=== PATIENT | female | born 1950 | race Caucasian/White ===

== ENCOUNTER 2020-12-12 10:47 | Outpatient (REF) | payer MEDICARE, SELFPAY ==
--- NOTE | 2020-12-12 10:55 | MM_ITS ---
EXAMINATION: MM DIAGNOSTIC DIGITAL BREAST TOMOSYNTHESIS, BILATERAL CLINICAL INFORMATION: Probable benign calcifications mid 9:00 right breast. Due for yearly. The lifetime risk of breast cancer based on the Tyrer-Cuzick Model is 6%. COMPARISON: Mammography: 12/08/2019, 06/05/2019, 12/03/2018, 11/28/2018 (BI-RADS 0), 11/27/2017. TECHNIQUE: Digital breast tomosynthesis is performed in both the craniocaudal and mediolateral oblique views along with computer-aided detection (CAD). Synthesized 2D images are generated from the tomosynthesis. Additional magnification views of the right breast are obtained in the CC and ML views. FINDINGS: The breasts are almost entirely fatty (ACR BI-RADS breast composition Category a). There are no significant masses, abnormal calcifications, or other abnormalities. The right breast calcifications for follow up are similar to prior diagnostic exams and now considered benign. There are some benign round calcifications anterior and posteromedial left breast again noted. Results are provided to the patient at time of visit by the technologist. MM/MM tomosynthesis diagnostic BI IMPRESSION: There are no significant changes from prior studies. The right breast calcifications for follow up are now considered benign. ASSESSMENT: BI-RADS 2: Benign RECOMMENDATION: Routine annual mammography screening. This patient's information was entered into a reminder system with a target due date for their next mammogram.
== END 2020-12-12 10:48 | disposition home or self-care (01) ==
LOC: HO.MAMMO 10:47
PROVIDERS: PCP Family Medicine; Visit Provider Family Medicine
DX: R92.1 Mammographic calcification found on diagnostic imaging of breast (principal)
CPT/HCPCS: 77062; 77066

== ENCOUNTER 2021-01-16 10:43 | Outpatient (REF) | payer MEDICARE, SELFPAY ==
[2021-01-16 14:56] LABS: Alanine Aminotransferase 16 U/L (0-31); Estimated Glomerular Filt Rate 56
== END 2021-01-16 10:44 | disposition home or self-care (01) ==
LOC: HO.HMGCLDS 10:43
PROVIDERS: PCP Family Medicine; Visit Provider Family Medicine
DX: E03.9 Hypothyroidism, unspecified (principal); E78.00 Pure hypercholesterolemia, unspecified; Z79.899 Other long term (current) drug therapy
CPT/HCPCS: 36415; 82550; 82565; 84439; 84443; 84460

== ENCOUNTER 2021-06-28 14:01 | Outpatient (REF) | payer MEDICARE, SELFPAY ==
--- NOTE | ~2021-06-28 | XR_ITS ---
EXAMINATION: XR HAND, RIGHT CLINICAL INFORMATION: Pain and swelling. COMPARISON: Radiographs right hand 08/27/2012. TECHNIQUE: The right hand is imaged in 3 views. FINDINGS: There is no fracture or dislocation or destructive process. Mild dorsal bowing of the distal ulnar is again seen. The ulnar variance is neutral. There are osteoarthritic changes involving the 1st carpometacarpal joint with joint narrowing and subchondral sclerosis and spurring. This has progressed since prior imaging 2011. The MCP and interphalangeal joints show no focal joint narrowing and no erosive changes. XR/XR hand RT min 3V IMPRESSION: Osteoarthritis 1st carpometacarpal joint, increased since prior imaging 2011.
[2021-06-28 16:53] LABS: Free T4 (Free Thyroxine) 1.16 ng/dL (0.71-1.85); Thyroid Stimulating Hormone 1.86 uIU/mL (0.32-4.0)
== END 2021-06-28 14:02 | disposition home or self-care (01) ==
LOC: HO.HMGCLDS 14:01
PROVIDERS: PCP Family Medicine; Visit Provider Family Medicine
DX: M79.641 Pain in right hand (principal); M79.89 Other specified soft tissue disorders; E03.9 Hypothyroidism, unspecified
CPT/HCPCS: 36415; 73130; 84439; 84443

== ENCOUNTER → 2021-09-06 13:51 | Outpatient (BNVA) | payer MEDICARE, SELFPAY | PROVIDERS: Visit Provider Orthopaedic Surgery | DX: M65.311 Trigger thumb, right thumb (principal); M65.341 Trigger finger, right ring finger | CPT/HCPCS: 99202 ==

== ENCOUNTER 2021-09-21 12:04 | Day surgery (SDC) | payer MEDICARE, SELFPAY ==
[2021-09-21 12:44] VITALS: BP 140/71; PULSE 69; RESP 18; TEMP 36.6; O2SAT 95; BMI 28.9
--- NOTE | 2021-09-21 15:50 | MHC.SHP ---
Pre-Procedural Eval Section A Date of Service: 09/21/21 The patient is an INPATIENT: No Changes since office visit: No Cold of Flu in the past 2 weeks, No New Medical Problems, No Changes in Medication and No Patient answered all questions The History & Physical has been completed within 30 days and I have reviewed it.: Yes Section B Chief Complaint: trigger thumb and ring finger Allergies: Allergies Allergy/AdvReac Type Severity Reaction Status Date / Time Yeast [YEAST] Allergy Unknown THRUSH Verified 09/06/21 14:33 Plan I have reviewed the history and physical and performed a pertinent physical examination on my patient. No changes have occurred unless specified.
--- NOTE | 2021-09-21 15:51 | W.PM.OPN ---
Operative Note Operative Note Date of Service: 09/21/21 Narrative: Operative Note Preop diagnosis: 1. Right ring finger Trigger finger 2. Right trigger thumb Postop diagnosis: Same Procedure: 1. Right ring finger A1 jitendra release 2. Right thumb A1 jitendra release Surgeon: Anna Faith MD Anesthesia: local block using 1% lidocaine with epinephrine Findings: No locking or catching after A1 jitendra release EBL: Less than 5 mL Tourniquet time: None Specimens: None Complications: None Disposition: Brought to recovery room in stable condition Plan: Follow-up for 7-10 days for wound check and suture removal Indications: The patient is a 70 years old, with a right trigger thumb and right ring finger trigger finger that have been unresponsive to nonoperative management. The risks and benefits of operative treatment including but not limited to risk of damage to blood vessels, nerves, tendons, infection, persistent pain, persistent symptoms, recurrence or possible need for additional surgery were discussed with the patient and the patient wishes to proceed with surgery. Procedure: Once consent was obtained a local block was performed in the preop area using a combination of 1% lidocaine with epinephrine. The patient was then brought back to the operating suite and placed on the operative table in supine position. A tourniquet was applied to the proximal aspect of the right upper extremity and the limb was prepped and draped in a standard surgical fashion. Once assured that we had a good block, a 1.5 cm oblique incision was made centered over the A1 jitendra of the right ring finger . The incision was made through the skin to the subcutaneous tissues using a #15 blade. Careful dissection was made down to the level of the A1 jitendra using tenotomy scissors, with care being taken to protect the nearby neurovascular structures. A longitudinal incision was made in the A1 jitendra 1st using a #15 blade, then using tenotomy scissors under direct visualization. The A1 jitendra was noted to be thickened. Following our A1 jitendra release, we no longer saw any locking or catching of the digit with flexion and extension. Once assured that we had a good block, a 1.5 cm oblique incision was made centered over the A1 jitendra of the right thumb . The incision was made through the skin to the subcutaneous tissues using a #15 blade. Careful dissection was made down to the level of the A1 jitendra using tenotomy scissors, with care being taken to protect the nearby neurovascular structures. A longitudinal incision was made in the A1 jitendra 1st using a #15 blade, then using tenotomy scissors under direct visualization. The A1 jitendra was noted to be thickened. Following our A1 jitendra release, we no longer saw any locking or catching of the digit with flexion and extension. Once satisfied with our A1 jitendra release the wound was copiously irrigated with normal saline and hemostasis was obtained with a brief period of local pressure. The skin edges were reapproximated with some 5.0 nylon suture material and a sterile dressing was applied. The patient appears to have tolerated the procedure well and with no complications. All digits were well vascularized at the conclusion of the case.
[2021-09-21 16:25] VITALS: BP 113/67; PULSE 63; RESP 16; TEMP 36.1; O2SAT 95
== END 2021-09-21 16:48 | disposition home or self-care (01) ==
PROVIDERS: PCP Family Medicine; Visit Provider Orthopaedic Surgery
PROC: (CPT 26055; principal; 2021-09-21 14:50)
DX: M65.341 Trigger finger, right ring finger (principal); M65.311 Trigger thumb, right thumb; F32.9 Major depressive disorder, single episode, unspecified; E78.00 Pure hypercholesterolemia, unspecified; M79.2 Neuralgia and neuritis, unspecified; Z79.899 Other long term (current) drug therapy
CPT/HCPCS: 26055 ×2

== ENCOUNTER → 2021-10-03 15:25 | Outpatient (BNVA) | payer MEDICARE, SELFPAY | PROVIDERS: PCP Family Medicine; Visit Provider Orthopaedic Surgery | DX: M65.311 Trigger thumb, right thumb (principal); M65.341 Trigger finger, right ring finger | CPT/HCPCS: 99212 ==

== ENCOUNTER 2021-12-26 10:33 | Outpatient (REF) | payer MEDICARE, SELFPAY ==
--- NOTE | ~2021-12-26 | MM_ITS ---
EXAMINATION: MM SCREENING DIGITAL BREAST TOMOSYNTHESIS, BILATERAL CLINICAL INFORMATION: Screening. Asymptomatic. The lifetime risk of breast cancer based on the Tyrer-Cuzick Model is 3%. COMPARISON: Mammography: 12/12/2020, 12/08/2019, 06/05/2019, 12/03/2018, 11/28/2018 TECHNIQUE: Digital breast tomosynthesis is performed in both the craniocaudal and mediolateral oblique views along with computer-aided detection (CAD). Synthesized 2D images are generated from the tomosynthesis. FINDINGS: The breasts are almost entirely fatty (ACR BI-RADS breast composition Category a). There are no significant masses, abnormal calcifications, or other abnormalities. Parenchymal pattern is similar to prior studies. There is no developing density or architectural abnormality. There are benign grouped coarse calcifications again seen mid 9:00 right breast. The axilla and skin contours are unremarkable. No significant changes. MM/MM tomosynthesis screening BI IMPRESSION: No mammographic evidence of malignancy. ASSESSMENT: BI-RADS 2: Benign RECOMMENDATION: Routine annual mammography screening. This patient's information was entered into a reminder system with a target due date for their next mammogram.
== END 2021-12-26 10:34 | disposition home or self-care (01) ==
LOC: HO.MAMMO 10:33
PROVIDERS: PCP Family Medicine; Visit Provider Family Medicine
DX: Z12.31 Encounter for screening mammogram for malignant neoplasm of breast (principal)
CPT/HCPCS: 77063; 77067

== ENCOUNTER 2022-01-03 12:38 | Outpatient (REF) | payer MEDICARE, SELFPAY ==
[2022-01-03 14:41] LABS: Free T4 (Free Thyroxine) 1.14 ng/dL (0.71-1.85); Thyroid Stimulating Hormone 3.47 uIU/mL (0.32-4.0)
== END 2022-01-03 12:39 | disposition home or self-care (01) ==
LOC: HO.LAB 12:38
PROVIDERS: PCP Family Medicine; Visit Provider Family Medicine
DX: E03.9 Hypothyroidism, unspecified (principal)
CPT/HCPCS: 36415; 84439; 84443

== ENCOUNTER 2022-03-07 12:44 | Outpatient (REF) | payer MEDICARE, SELFPAY ==
[2022-03-07 13:44] LABS: MANUAL DIFF FLAG NO
[2022-03-07 13:49] LABS: Basophils Absolute Auto 0.1 X10*3/uL (0.0-0.2); Basophils Percent Auto 1.1 % (0-2); Eosinophils Absolute Auto 0.1 X10*3/uL (0.0-0.4); Eosinophils Percent Auto 1.7 % (0-4); Hematocrit 39.8 % (37.0-47.0); Hemoglobin 13.4 g/dl (12.0-16.0); Imm Gran Abs Auto 0.01 X10*3/uL (0.00-0.03); Imm Gran Pct Auto 0.2 % (0.0-0.4); Lymphocytes Absolute Auto 1.3 X10*3/uL (1.2-4.9); Lymphocytes Percent Auto 24.8 % (20-40); Mean Corpuscular HGB Conc 33.7 g/dl (31.0-35.0); Mean Corpuscular Hemoglobin 31.6 pg (27.0-33.0); Mean Corpuscular Volume 93.9 fL (80.0-98.0); Monocytes Absolute Auto 0.6 X10*3/uL (0.1-1.2); Monocytes Percent Auto 11.6 % (2-11); Neutrophils Absolute Auto 3.3 x10*3/uL (2.0-8.3); Neutrophils Percent Auto 60.6 % (45-73); Platelet Count 298 X10*3/uL (160-400); Red Blood Count 4.24 X10*6/uL (4.20-5.50); Red Cell Distribution Width 12.3 % (11.0-16.0); White Blood Count 5.4 X10*3/uL (4.8-10.8)
[2022-03-07 14:13] LABS: Alanine Aminotransferase 15 U/L (0-31); Albumin Level 4.2 g/dL (3.5-5.0); Alkaline Phosphatase 64 U/L (39-117); Anion Gap 12 (12-20); Aspartate Amino Transferase 19 U/L (5-31); Bilirubin Total 0.8 mg/dL (0.0-1.0); Blood Urea Nitrogen 12 mg/dL (9-16); Calcium 9.8 mg/dL (8.4-10.2); Carbon Dioxide 26 mmol/L (22-29); Chloride 99 mmol/L (96-108); Estimated Glomerular Filt Rate 54; Glucose Random 102 mg/dL (60-115); Potassium 4.5 mmol/L (3.3-5.1); Sodium 132 mmol/L (135-145); Total Protein 6.9 g/dL (6.5-8.0)
[2022-03-07 14:53] LABS: Erythrocyte Sedimentation Rate 5 MM/HR (0-20)
[2022-03-08 15:31] LABS: Anti Nuclear Antibody Screen NEGATIVE (NEGATIVE)
== END 2022-03-07 12:45 | disposition home or self-care (01) ==
LOC: HO.HMGCLDS 12:44
PROVIDERS: PCP Family Medicine; Visit Provider Family Medicine
DX: L50.9 Urticaria, unspecified (principal)
CPT/HCPCS: 36415; 80053; 85025; 85652; 86038; 86039

== ENCOUNTER 2022-07-02 15:09 | Outpatient (REF) | payer MEDICARE, SELFPAY ==
--- NOTE | ~2022-07-02 | US_ITS ---
EXAMINATION: US PELVIS CLINICAL INFORMATION: Right lower quadrant pain. Rule out ovarian cyst. COMPARISON: None TECHNIQUE: Ultrasound of the pelvis is performed using both transabdominal and transvaginal transducers along with Doppler. Transvaginal imaging is performed due to inadequate visualization transabdominally. FINDINGS: The uterus is retroverted and measures 8.8 x 2.4 x 4.8 cm in dimension. No focal uterine lesion is seen. Endometrial thickness is normal measuring 0.3 cm. The right ovary is normal-appearing and measures 2.5 x 1 x 1.9 cm. The left ovary is enlarged and measures 7.2 x 4.2 x 6.2 cm. There is a 6.3 x 4.6 x 6.2 cm simple left ovarian cyst. There is no fluid in the pelvis. US/US pelvic and transvaginal IMPRESSION: 6.3 x 4.6 x 6.2 cm left ovarian cyst.
[2022-07-02 17:32] LABS: Anion Gap 16 (12-20); Carbon Dioxide 25 mmol/L (22-29); Chloride 95 mmol/L (96-108); Potassium 3.8 mmol/L (3.3-5.1); Sodium 132 mmol/L (135-145)
[2022-07-02 17:59] LABS: Free T4 (Free Thyroxine) 1.18 ng/dL (0.71-1.85); Thyroid Stimulating Hormone 2.48 uIU/mL (0.32-4.0)
== END 2022-07-02 15:10 | disposition home or self-care (01) ==
LOC: HO.HMGCX 15:09
PROVIDERS: PCP Family Medicine; Visit Provider Family Medicine
DX: R10.30 Lower abdominal pain, unspecified (principal); E03.9 Hypothyroidism, unspecified; E87.1 Hypo-osmolality and hyponatremia
CPT/HCPCS: 36415; 76830; 76856; 80051; 84439; 84443

== ENCOUNTER 2022-07-11 10:46 | Outpatient (REF) | payer MEDICARE, SELFPAY ==
[2022-07-11 13:54] LABS: MANUAL DIFF FLAG NO
[2022-07-11 14:02] LABS: Basophils Absolute Auto 0.1 X10*3/uL (0.0-0.2); Basophils Percent Auto 1.1 % (0-2); Eosinophils Absolute Auto 0.1 X10*3/uL (0.0-0.4); Eosinophils Percent Auto 2.8 % (0-4); Hematocrit 40.1 % (37.0-47.0); Hemoglobin 13.5 g/dl (12.0-16.0); Lymphocytes Absolute Auto 0.9 X10*3/uL (1.2-4.9); Lymphocytes Percent Auto 19.6 % (20-40); Mean Corpuscular HGB Conc 33.7 g/dl (31.0-35.0); Mean Corpuscular Hemoglobin 31.8 pg (27.0-33.0); Mean Corpuscular Volume 94.6 fL (80.0-98.0); Mean Platelet Volume 10.6 fL (9.4-12.3); Monocytes Absolute Auto 0.5 X10*3/uL (0.1-1.2); Monocytes Percent Auto 11.5 % (2-11); Neutrophils Absolute Auto 3.1 x10*3/uL (2.0-8.3); Platelet Count 262 X10*3/uL (160-400); Red Blood Count 4.24 X10*6/uL (4.20-5.50); Red Cell Distribution Width 12.5 % (11.0-16.0); White Blood Count 4.7 X10*3/uL (4.8-10.8)
[2022-07-11 14:59] LABS: Erythrocyte Sedimentation Rate 4 MM/HR (0-20)
[2022-07-13 10:27] LABS: CA-125 7 U/mL (<35)
== END 2022-07-11 10:47 | disposition home or self-care (01) ==
LOC: HO.HMGCLDS 10:46
PROVIDERS: PCP Family Medicine; Visit Provider Family Medicine
DX: R10.9 Unspecified abdominal pain (principal); N83.202 Unspecified ovarian cyst, left side
CPT/HCPCS: 36415; 85025; 85652; 86304

== ENCOUNTER 2022-12-28 10:24 | Outpatient (REF) | payer MEDICARE, SELFPAY ==
--- NOTE | ~2022-12-28 | MM_ITS ---
EXAMINATION: MM SCREENING DIGITAL BREAST TOMOSYNTHESIS, BILATERAL CLINICAL INFORMATION: Screening. Asymptomatic. The lifetime risk of breast cancer based on the Tyrer-Cuzick Model is 3.6%. COMPARISON: Mammography: December 26, 2021 and studies dating back to October 26, 2016 TECHNIQUE: Digital breast tomosynthesis is performed in both the craniocaudal and mediolateral oblique views along with computer-aided detection (CAD). Synthesized 2D images are generated from the tomosynthesis. FINDINGS: The breasts are almost entirely fatty (ACR BI-RADS breast composition Category a). There are no significant masses, abnormal calcifications, or other abnormalities. MM/MM tomosynthesis screening BI IMPRESSION: No significant changes ASSESSMENT: BI-RADS 1: Negative RECOMMENDATION: Routine annual mammography screening. This patient's information was entered into a reminder system with a target due date for their next mammogram.
== END 2022-12-28 10:25 | disposition home or self-care (01) ==
LOC: HO.MAMMO 10:24
PROVIDERS: PCP Family Medicine; Visit Provider Obstetrics & Gynecology
DX: Z12.31 Encounter for screening mammogram for malignant neoplasm of breast (principal)
CPT/HCPCS: 77063; 77067

== ENCOUNTER 2023-02-22 13:03 | Outpatient (REF) | payer MEDICARE, SELFPAY ==
[2023-02-22 14:35] LABS: Alanine Aminotransferase 12 U/L (0-31); Aspartate Amino Transferase 19 U/L (5-31)
[2023-02-22 14:52] LABS: Free T4 (Free Thyroxine) 1.15 ng/dL (0.71-1.85); Thyroid Stimulating Hormone 1.67 uIU/mL (0.32-4.0)
[2023-02-22 16:39] LABS: Albumin Level 4.1 g/dL (3.5-5.0)
== END 2023-02-22 13:04 | disposition home or self-care (01) ==
LOC: HO.HMGCLDS 13:03
PROVIDERS: PCP Family Medicine; Visit Provider Family Medicine
DX: E03.9 Hypothyroidism, unspecified (principal); E78.00 Pure hypercholesterolemia, unspecified; Z79.899 Other long term (current) drug therapy
CPT/HCPCS: 36415; 82040; 82550; 84439; 84443; 84450; 84460

== ENCOUNTER 2023-09-09 09:28 | Outpatient (REF) | payer MEDICARE, SELFPAY ==
[2023-09-09 12:30] LABS: Free T4 (Free Thyroxine) 1.07 ng/dL (0.71-1.85); Thyroid Stimulating Hormone 1.83 uIU/mL (0.32-4.0)
== END 2023-09-09 09:29 | disposition home or self-care (01) ==
LOC: HO.HMGCLDS 09:28
PROVIDERS: PCP Family Medicine; Visit Provider Family Medicine
DX: E03.9 Hypothyroidism, unspecified (principal)
CPT/HCPCS: 36415; 84439; 84443

== ENCOUNTER 2024-01-03 09:59 | Outpatient (REF) | payer MEDICARE, SELFPAY ==
--- NOTE | ~2024-01-03 | MM_ITS ---
EXAMINATION: BONE DENSITOMETRY CLINICAL INDICATION: Menopause. COMPARISON: Previous BD dated 06/05/2019 and baseline BD dated 01/20/2008. TECHNIQUE: Using a [employer] DXA System (software version: 13.1) manufactured by [employer], dual-energy x-ray absorptiometry was performed of the lumbar spine and left hip. The images are of good technical quality. Summary results are attached. FINDINGS: LEFT FEMUR, NECK: Current: BMD 0.914 g/cm2, Z-score 0.7, T-score -0.9, normal. Prior: BMD 0.940 g/cm2. Baseline: BMD 0.942 g/cm2. LEFT FEMUR, TOTAL: Current: BMD 1.025 g/cm2, Z-score 1.5, T-score 0.1, normal, 2.3% decrease from previous, 5.3% decrease from baseline (<5% change is not significant). Prior: BMD 1.049 g/cm2. Baseline: BMD 1.082 g/cm2. AP SPINE L1-L4: Current: BMD 1.059 g/cm2, Z-score 0.4, T-score -1.0, normal, 4.9% decrease from previous, 11.6% decrease from baseline (<5% change is not significant). Prior: BMD 1.114 g/cm2. Baseline: BMD 1.198 g/cm2. IDENTIFIED RISK FACTORS: Menopause, low calcium intake. HISTORY OF FRACTURE: None listed. MEDICATIONS: Calcium, vitamin D. MM/XR DEXA axial skeleton IMPRESSION: 1. DIAGNOSIS: Normal bone density based on the lowest T-score value of -1.0 in the lumbar spine applying World Health Organization criteria. 2. 10-YEAR FRACTURE RISK PREDICTION, FRAX: According to the guidelines, FRAX calculation should only be performed on patients in the osteopenia bone density category. Therefore, FRAX was not performed on this patient. 3. Treatment Recommendations: NOF guidelines recommend consideration for treatment in postmenopausal women and men age 50 and older presenting with the following: -A hip or vertebral (clinical or morphometric) fracture. -T-score less than or equal to -2.5 at the femoral neck or spine after appropriate evaluation to exclude secondary causes. -Low bone mass at the hip or spine and a 10-year fracture probability by FRAX of greater than or equal to 3% for hip fracture or greater than or equal to 20% for major osteoporotic fracture based on the [place] adapted WHO algorithm. 4. Other Recommendations: All treatment decisions require clinical judgment and consideration of individual patient factors, including patient preferences, comorbidities, previous drug use, risk factors not captured in the FRAX model (e.g. frailty, falls, vitamin D deficiency, increased bone turnover, interval significant decline in bone density) and possible under or overestimation of fracture risk by FRAX. FUTURE SCAN RECOMMENDATION: People with diagnosed cases of osteoporosis or at high risk for fracture should have regular bone mineral density tests. For patients eligible for Medicare, routine testing is allowed once every 2 years. The testing frequency can be increased to one year for patients who have rapidly progressing disease, those who are receiving or discontinuing medical therapy to restore bone mass, or have additional risk factors.
== END 2024-01-03 10:00 | disposition home or self-care (01) ==
LOC: HO.MAMMO 09:59
PROVIDERS: PCP Family Medicine; Visit Provider Obstetrics & Gynecology
DX: Z12.31 Encounter for screening mammogram for malignant neoplasm of breast (principal); Z13.820 Encounter for screening for osteoporosis; Z78.0 Asymptomatic menopausal state
CPT/HCPCS: 77063; 77067; 77080

== ENCOUNTER → 2024-01-03 10:30 | Outpatient (BNV) | payer MEDICARE, SELFPAY | PROVIDERS: PCP Family Medicine; Visit Provider Radiology Diagnostic Radiology | DX: Z12.31 Encounter for screening mammogram for malignant neoplasm of breast (principal) | CPT/HCPCS: 77063; 77067 ==

== ENCOUNTER 2024-03-27 09:55 | Outpatient (REF) | payer MEDICARE, SELFPAY ==
[2024-03-27 13:30] LABS: MANUAL DIFF FLAG NO
[2024-03-27 13:38] LABS: Eosinophils Absolute Auto 0.1 X10*3/uL (0.0-0.4); Eosinophils Percent Auto 2.8 % (0-4); Hematocrit 40.1 % (37.0-47.0); Hemoglobin 13.3 g/dl (12.0-16.0); Imm Gran Abs Auto 0.01 X10*3/uL (0.00-0.03); Imm Gran Pct Auto 0.3 % (0.0-0.4); Lymphocytes Percent Auto 24.9 % (20-40); Mean Corpuscular HGB Conc 33.2 g/dl (31.0-35.0); Mean Corpuscular Hemoglobin 32.4 pg (27.0-33.0); Mean Corpuscular Volume 97.6 fL (80.0-98.0); Mean Platelet Volume 10.6 fL (9.4-12.3); Monocytes Absolute Auto 0.5 X10*3/uL (0.1-1.2); Monocytes Percent Auto 12.8 % (2-11); Neutrophils Absolute Auto 2.3 x10*3/uL (2.0-8.3); Neutrophils Percent Auto 58.2 % (45-73); Platelet Count 234 X10*3/uL (160-400); Red Blood Count 4.11 X10*6/uL (4.20-5.50); Red Cell Distribution Width 12.6 % (11.0-16.0); White Blood Count 3.9 X10*3/uL (4.8-10.8)
[2024-03-27 14:06] LABS: Alanine Aminotransferase 11 U/L (0-31); Anion Gap 12 (12-20); Aspartate Amino Transferase 18 U/L (5-31); Blood Urea Nitrogen 10 mg/dL (9-16); Carbon Dioxide 25 mmol/L (22-29); Chloride 101 mmol/L (96-108); Estimated Glomerular Filt Rate 56; Sodium 134 mmol/L (135-145)
== END 2024-03-27 09:56 | disposition home or self-care (01) ==
LOC: HO.HMGCLDS 09:55
PROVIDERS: PCP Family Medicine; Visit Provider Family Medicine
DX: E03.9 Hypothyroidism, unspecified (principal); K58.0 Irritable bowel syndrome with diarrhea; E78.00 Pure hypercholesterolemia, unspecified; G62.9 Polyneuropathy, unspecified
CPT/HCPCS: 36415; 80051; 82550; 82565; 84439; 84450; 84460; 84520; 85025

== ENCOUNTER 2024-06-16 06:23 | Day surgery (SDC) | payer MEDICARE, SELFPAY ==
[2024-06-12 12:15] VITALS: BMI 26.6
--- NOTE | 2024-06-15 09:47 | HO.ANESPROP2 ---
Documented by User: Lizzette Nolan NP 06/15/24 09:47 HPI - Anesthesia Eval Consult details Narrative: 73yo F for Colonoscopy PMFSH Active Problems Active Problems: All Active Problems Trigger finger, right ring finger (Acute) Trigger finger of right thumb (Acute) Past Medical History Medical History (Updated 06/12/24 @ 12:18 by Jaye Butcher, RN) Bulging lumbar disc Rotator cuff arthropathy Depression Nerve pain High cholesterol Surgical History Surgical History (Updated 06/16/24 @ 06:40 by Jenny Higgins) H/O hand surgery History of bunionectomy Hx of repair of right rotator cuff Hx of colonoscopy Social History Social History Are you a primary primary care sales representative to a significant other at home: No Do you presently have visiting nurse or other home services: No Patient Tobacco Use Status: Never used Tobacco Use of substances other than those prescribed or required for medical reasons: No Have you been hit, kicked, punched, or otherwise hurt by someone within the past year? If so, by whom?: No Are you DNR?: No Advance Directives: No (will bring DOS) Advance Directives Information Provided: Yes Advance Directives on File: No Recently lost weight without trying: No Nutrition Risks: No Nutritional Risk Poor oral hygiene: No Current occupational status: retired Current occupation: right hand Meds Allergies Allergy/AdvReac Type Severity Reaction Status Date / Time Yeast [YEAST] Allergy Intermediate THRUSH Verified 06/16/24 06:40 Home Medications ?Medication ?Instructions ?Recorded ?Confirmed ?Last Taken ?Type atorvastatin 10 mg tablet 10 mg PO BEDTIME 09/06/21 06/16/24 Unknown History levothyroxine 88 mcg capsule 88 mcg PO DAILY 09/06/21 06/16/24 06/16/24 History citalopram 20 mg tablet 20 mg PO QAM 06/12/24 06/16/24 06/16/24 History gabapentin 300 mg capsule 600 mg PO BEDTIME 06/12/24 06/16/24 Unknown History metoprolol tartrate 25 mg tablet 25 mg PO BID 06/12/24 06/16/24 06/16/24 History Exam Height,Weight and Vital Signs: Height 5 ft 5 in Weight 72.575 kg Assessment and Plan Assessment Anesthesia Assessment: Chart Reviewed Documented by User: Ag Carroll MD 06/16/24 07:26 [facility] Past Medical History Medical History (Updated 06/12/24 @ 12:18 by Jaye Butcher RN) Bulging lumbar disc Rotator cuff arthropathy Depression Nerve pain High cholesterol Family History Family history of problems with anesthesia: No Surgical History Surgical History (Updated 06/16/24 @ 06:40 by Jenny Higgins) H/O hand surgery History of bunionectomy Hx of repair of right rotator cuff Hx of colonoscopy History of Problems with Anesthesia: No Social History Social History Are you a primary primary care sales representative to a significant other at home: No Do you presently have visiting nurse or other home services: No Patient Tobacco Use Status: Never used Tobacco Use of substances other than those prescribed or required for medical reasons: No Have you been hit, kicked, punched, or otherwise hurt by someone within the past year? If so, by whom?: No Are you DNR?: No Advance Directives: No (will bring DOS) Advance Directives Information Provided: Yes Advance Directives on File: No Recently lost weight without trying: No Nutrition Risks: No Nutritional Risk Poor oral hygiene: No Current occupational status: retired Current occupation: right hand Meds Allergies Allergy/AdvReac Type Severity Reaction Status Date / Time Yeast [YEAST] Allergy Intermediate THRUSH Verified 06/16/24 06:40 Home Medications ?Medication ?Instructions ?Recorded ?Confirmed ?Last Taken ?Type atorvastatin 10 mg tablet 10 mg PO BEDTIME 09/06/21 06/16/24 Unknown History levothyroxine 88 mcg capsule 88 mcg PO DAILY 09/06/21 06/16/24 06/16/24 History citalopram 20 mg tablet 20 mg PO QAM 06/12/24 06/16/24 06/16/24 History gabapentin 300 mg capsule 600 mg PO BEDTIME 06/12/24 06/16/24 Unknown History metoprolol tartrate 25 mg tablet 25 mg PO BID 06/12/24 06/16/24 06/16/24 History Exam Airway Mallampati Class: I TM Dist: <=3cm Neck ROM: Full Loose/Missing/Broken Teeth: No Heart: ok Lungs: ok Assessment and Plan Assessment Anesthesia Assessment: Anesthesia Plan Discussed Final Anesthetic Review Family History of Problems with Anesthesia: No History of Problems with Anesthesia: No NPO: Yes ASA Class: II Final Preanesthetic Review: No Changes in Pt Med Stat, Meds/Allgs Chart Reviewed, Consent Obtained/Reviewed and Anes Risks/Benef Reviewed Patient Risk: Low Procedure Risk: Low Anesthetic Plan Anesthetic Plan: MAC: and Agree w/ Assess. and Plan Disposition: Standard PACU
[2024-06-16 06:42] VITALS: BMI 27.8
[2024-06-16 06:56] VITALS: BP 135/78; PULSE 65; RESP 16; TEMP 36.6; O2SAT 96
[2024-06-16] MEDS: Lactated Ringers 1,000 ML 100 ML IVCONT (07:02)
--- NOTE | 2024-06-16 07:29 | MHC.SHP ---
Pre-Procedural Eval Section A - 24 Hr Update-Section A only Date of Service: 06/16/24 Section B - Complete if H&P > 30 days Chief Complaint: screening Details of Present Illness: see H&P no changes Relevant Family History (Specify if Yes): No Relevant Social History: None Present Medications: see Short Stay Collaborative assessment Medical History: No relevant PMH History of Previous Operations: No relevant previous surgery Allergies: Allergies Allergy/AdvReac Type Severity Reaction Status Date / Time Yeast [YEAST] Allergy Intermediate THRUSH Verified 06/16/24 06:40 Review of Systems Sugical H&P ROS: Negative: Constitution, Cardiovascular, Respiratory, Neurological, Psychiatric, Hem-Onc, Allergic/Immunologic, Gastrointestinal, Genitourinary, Musculoskeletal, Integumentary, Endocrine and Eyes/Ears/Nose/Throat Exam Surgical H&P Exam: Normal: HEENT, Normal: Heart, Normal: Lungs, Normal: Extremities, Normal: Abdomen, Normal: Skin and Normal: Neurological Plan Diagnosis/Plan: Unchanged I have reviewed the history and physical and performed a pertinent physical examination on my patient. No changes have occurred unless specified. Time Spent With Patient Time: Total time managing care of this patient today ____ minutes.
[2024-06-16 08:02] VITALS: BP 87/48; PULSE 61; RESP 16; TEMP 36.3; O2SAT 95
[2024-06-16 08:07] VITALS: BP 93/57; PULSE 61; RESP 16; O2SAT 97
[2024-06-16 08:12] VITALS: BP 123/67; PULSE 58; RESP 16; O2SAT 97
[2024-06-16 08:17] VITALS: BP 113/57; PULSE 56; RESP 16; TEMP 36.1; O2SAT 97
--- NOTE | 2024-06-16 08:36 | OP_ITS ---
DATE OF SERVICE: 06/16/2024 SURGEON: Mynor Rocha MD INDICATIONS: Colon cancer screening. PREOPERATIVE DIAGNOSIS: POSTOPERATIVE DIAGNOSIS: PROCEDURE PERFORMED: Colonoscopy to the terminal ileum with snare polypectomy and biopsy. ESTIMATED BLOOD LOSS: COMPLICATIONS: ANESTHESIA: Monitored anesthesia care. ASSISTANTS: SPECIMENS: DESCRIPTION OF PROCEDURE: A history and physical were performed. The risks and benefits of the procedure were explained to the patient, and informed consent was obtained. The patient was placed in the left lateral decubitus position. A digital rectal exam was performed and was found to be normal. The Olympus pediatric video colonoscope was introduced into the rectum and advanced to the cecum. The cecum was identified by transillumination, palpation, and identification of the ileocecal valve. Examination was performed, and the scope was removed. She tolerated the procedure well and was returned to the recovery area in stable condition. FINDINGS: The terminal ileum was briefly examined and appeared normal. The visualized colonic mucosa was normal. The quality of the prep was good. Two polyps were identified. These measured less than 10 mm and were removed with a hot snare. These were located at 80 cm and 15 cm from the rectum.. No other polyps were identified. Retroflexed examination was normal. There were small internal hemorrhoids and some hypertrophic anal papillae. The quality of the prep was good. IMPRESSION: Colon polyps. RECOMMENDATION: Follow up the biopsy results. MD KATIA Elliott/MARINA / [id number] MTDD
== END 2024-06-16 08:42 | disposition home or self-care (01) ==
PROVIDERS: PCP Family Medicine; Visit Provider Internal Medicine Gastroenterology
PROC: 0DJD8ZZ Inspection of Lower Intestinal Tract, Via Natural or Artificial Opening Endoscopic (ICD-10-PCS; CPT 45378; principal; 2024-06-16 07:30)
DX: Z12.11 Encounter for screening for malignant neoplasm of colon (principal); D12.4 Benign neoplasm of descending colon; K63.5 Polyp of colon; K62.89 Other specified diseases of anus and rectum; K64.8 Other hemorrhoids; K21.9 Gastro-esophageal reflux disease without esophagitis; E03.9 Hypothyroidism, unspecified; E78.5 Hyperlipidemia, unspecified; R00.0 Tachycardia, unspecified; F32.A Depression, unspecified; M51.9 Unspecified thoracic, thoracolumbar and lumbosacral intervertebral disc disorder; G62.9 Polyneuropathy, unspecified; Z79.899 Other long term (current) drug therapy; Z98.890 Other specified postprocedural states
CPT/HCPCS: 45385; 88305; J2704

== ENCOUNTER 2024-07-29 13:24 | Outpatient (REF) | payer MEDICARE, SELFPAY ==
[2024-07-29 16:18] LABS: MANUAL DIFF FLAG NO
[2024-07-29 16:26] LABS: Basophils Percent Auto 0.6 % (0-2); Eosinophils Absolute Auto 0.1 X10*3/uL (0.0-0.4); Eosinophils Percent Auto 2.1 % (0-4); Hematocrit 39.5 % (37.0-47.0); Lymphocytes Absolute Auto 1.2 X10*3/uL (1.2-4.9); Lymphocytes Percent Auto 22.9 % (20-40); Mean Corpuscular HGB Conc 32.9 g/dl (31.0-35.0); Mean Corpuscular Hemoglobin 32.3 pg (27.0-33.0); Mean Platelet Volume 10.4 fL (9.4-12.3); Monocytes Absolute Auto 0.6 X10*3/uL (0.1-1.2); Monocytes Percent Auto 11.7 % (2-11); Neutrophils Absolute Auto 3.3 x10*3/uL (2.0-8.3); Neutrophils Percent Auto 62.7 % (45-73); Platelet Count 256 X10*3/uL (160-400); Red Blood Count 4.03 X10*6/uL (4.20-5.50); Red Cell Distribution Width 12.5 % (11.0-16.0); White Blood Count 5.2 X10*3/uL (4.8-10.8)
== END 2024-07-29 13:25 | disposition home or self-care (01) ==
LOC: HO.HMGCLDS 13:24
PROVIDERS: PCP Family Medicine; Visit Provider Family Medicine
DX: D72.819 Decreased white blood cell count, unspecified (principal)
CPT/HCPCS: 36415; 85025

== ENCOUNTER 2024-11-03 12:19 | Outpatient (REF) | payer MEDICARE, SELFPAY ==
[2024-11-03 14:22] LABS: Free T4 (Free Thyroxine) 1.11 ng/dL (0.71-1.85); Thyroid Stimulating Hormone 3.94 uIU/mL (0.32-4.0)
--- OUTSIDE RECORDS SUMMARY | 2024-11-04 21:06 | XMS_ITS ---
Author Organization [facility] Address [address] [place] [address] Care Team Providers Care Academic Manager Name Role Phone Taras VAUGHN, Eric Primary Care Provider Unavailab Mynor Stewart Jr Unavailable [phone] ALLERGIES No Known Allergies REASON FOR VISIT Patient presents today for a SCREENING COLON MEDICATIONS Medication SIG (Take, Route, Frequency, Duration) Notes Start Date End Date Status Metoprolol Tartrate 25 MG Oral for 90 Active Citalopram Hydrobromide 20 MG Oral for 90 Active ZyrTEC 10 MG 1 tablet Orally Once a day for 30 day(s) 05/14/2024 Active Calcium 1 tab Oral for 14 days 05/14/2024 Active Multi Vitamin Daily 05/14/2024 Active Levothyroxine Sodium 88 MCG Oral for 90 Active Atorvastatin Calcium 10 MG Oral for 90 Active Gabapentin 300 MG Oral for 90 Active SOCIAL HISTORY Tobacco Use: Social History Observation Description Date Details (start date - stop date) Never Smoker NA - NA Sex Assigned At : Social History Observation Description Sex Assigned At Unknown Tobacco Use/Smoking Question Answer Notes Patient is a nonsmoker Alcohol Screen Question Answer Notes Did you have a drink contain ing alcohol in the past year? Yes How often did you have a dri nk containing alcohol in the past year? 2 to 3 times a week (3 points) How many drinks did you have on a typical day when you were drinking in the past year? 1 or 2 drinks (0 point) How often did you have 6 or more drinks on one occasion in the past year? Never (0 point) Points 3 Interpretation Positive VITAL SIGNS BMI 26.83 kg/m2 05/14/2024 Blood pressure systolic 000 mm Hg 05/14/20 24 Blood pressure diastolic 00 mm Hg 024 Height 5 ft 5 in in 05/14/2024 Temperature 97.7 degrees Fahrenheit 05/14/20 24 Weight 161 lb 4 oz lbs 05/14/2024 Encounters Encounter Location Date Provider Diagnosis [facility] [address] [place] [address] 05/14/2024 Mynor Rocha Jr Colon cancer screening Z12.11 ASSESSMENTS Encounter Date Diagnosis Assessment Notes Treatment Notes Treatment Clinical Notes 05/14/2024 Colon cancer screening (ICD-10 - Z12.11) Colonoscopy material was printed PLAN OF TREATMENT Treatment Notes Assessment Notes Colon cancer screening Colonoscopy mater ial was printed Future Test Test Name Order Date COLONOSCOPY 05/14/2024 Next Appt Details Follow Up: 1 Year, Reason: Progress Notes * Examination Category Sub-Category Detail Notes General Examination GENERAL APPEARANCE: in no ac [place] distress HEAD: normocephalic EYES: sclera non-icteric NECK/THYROID: no lymphadenopathy HEART: S1, S2 normal, no mu rmurs CHEST: normal shape and exp ansion LUNGS: clear to auscultatio n bilaterally ABDOMEN: soft, nontender, non distended, bowel sounds present, no organomegaly SKIN: anicteric EXTREMITIES: no clubbing, cyanosi s, or edema PSYCH: cognitive function i ntact ORAL CAVITY: mucosa moist
--- OUTSIDE RECORDS SUMMARY | 2024-11-04 21:06 | XMS_ITS ---
Author Organization [facility] Address [address] [place] [address] Care Team Providers Care Manager Banquet Name Role Phone Eric Grajeda MD Primary Care Provider Unavailab Mynor Stewart Jr Unavailable [phone] REASON FOR VISIT pathology Encounters Encounter Location Date Provider Diagnosis [facility] [address] [place] [address] 06/22/2024 Mynor Rocha Jr PLAN OF TREATMENT No Information
--- OUTSIDE RECORDS SUMMARY | 2024-11-04 21:06 | XMS_ITS ---
Author Organization [facility] Address [address] [place] [address] Care Team Providers Care Display Coordinator Name Role Phone Eric Grajeda MD Primary Care Provider Unavailab Mynor Stewart Jr Unavailable REASON FOR VISIT screening Encounters Encounter Location Date Provider Diagnosis [facility] Out[facility] [address] [place], [place] [id number] 06/16/2024 Mynor Rocha Jr Colon cancer screening Z12.11 and Colon polyps K63.5 ASSESSMENTS Encounter Date Diagnosis Assessment Notes Treatment Notes Treatment Clinical Notes 06/16/2024 Colon cancer screening (ICD-10 - Z12.11) 06/16/2024 Colon polyps (ICD-10 - K63.5) PLAN OF TREATMENT No Information
--- OUTSIDE RECORDS SUMMARY | 2024-11-04 21:07 | XMS_ITS | Patient Health Record ---
Author Organization [facility] Address [address] [place] [address] Care Team Providers Care Talent Development Specialist Name Role Phone Eric Grajeda MD Primary Care Provider UnavailSha Menezes Unavailable [phone] Allergies Allergen (clinical drug ingredient) Drug/Non Drug Allergy documented on EMR Reaction Allergy Type Onset Date Status Yeast Formula Unknown Drug Allergy Act sabine Reason For Referral No Information Medications Medication SIG (Take, Route, Frequency, Duration) Notes Start Date End Date Status Hyoscyamine Not-Taki ng Lipitor 10 MG 1 tablet Orally Once a day for 30 day(s) Not-Taking Levoxyl Not-Taking Multivitamins Not-Ta steve Metoprolol & Diet Manage Prod Not-Taking Atorvastatin Calcium 10 MG 1 tablet Oral ly Once a day for 30 day(s) Active oxyBUTYnin 10mg Once a day Not -Taking Omeprazole Not-Takin g Levothyroxine Sodium 88 MCG 1 tablet in the morning on an empty stomach Orally Once a day for 30 day(s) Active ZyrTEC Allergy Not-T aking Gabapentin 300 MG 1 tablet Orally QD Active Vitamin C Not-Taking Ambien Not-Taking Metoprolol Tartrate 25 MG 1 tablet with food Orally Twice a day for 30 day(s) Active Ibuprofen 600 MG 1 tablet Orally Thre e times a day for 30 day(s) 11/12/2016 Not-Taking Immunizations Vaccine Route Administration Date Status Comme nts COVID-19 Moderna Vaccine Unknown 08/29/2021 Administered 1st 01/09/2021 2nd 02/06/2021 Influenza Unknown 07/26/2021 Administered Social History Tobacco Use: Social History Observation Description Date Details (start date - stop date) Never Smoker NA - NA Tobacco Use/Smoking Question Answer Notes Are you a: nonsmoker Alcohol Screen Question Answer Notes Did you have a drink containing alcohol in the p ast year? Yes Points 0 Interpretation Negative Tobacco use other than smoking: Question Answer Notes Are you an other tobacco user? No Problems Problem Type SNOMED Code ICD Code Onset Dates Problem Status W/U Status Risk Notes Problem Acquired hallux valgus (67719376) Hallux valgus (acquired), right foot (M20.11) Active confirmed Plan Of Treatment Pending Test Test Name Order Date X ray : Foot, right 2V 09/12/2016 X ray : Foot, right 2V 12/03/2016 X ray : Foot, right 2V 12/17/2016 X ray : Foot, right 2V 01/07/2017 X ray : Foot, left 3V 04/14/2012 42947-Pasy Destruction, 12-0805/12/2012 45723-Ojrg Destruction, 12-0812/29/2012 36015-Dvza Destruction, 12-0803/30/2013 56800-Gffc Destruction, 12-0803/05/2014 32201-Brdm Destruction, 12-0804/22/2014 Insurance Providers Payer Name Payer Address Payer Phone Subscriber Number Group Number Insured Name Patient Relationship to Insured Coverage Start Date Coverage End Date Medicare National Govt Svcs Inc [address] [place] [address] [id number] Rosa Wakefield Self - patient is the insured 7 [employer] Blue Shield [address] [place] [address] [phone] [id number] Rosa Wakefield Self - patient is the insured Medical (General) History Medical History History ICD Code Allergic rhinitis asthma chicken pox Depression Gastroesophageal reflux disease (GERD) Irritable bowel syndrome Insomnia left tinnitus measles mumps Neuropathy ophthalmic migraine Sciatica thyroid disorder Surgical History Surgery Date(Month/Year) deviated septum repair 1984 Shelli Lopes R 11/29/2016 rotator cuff tear repair 2018 trigger finger release 09/21/21
--- OUTSIDE RECORDS SUMMARY | 2024-11-04 21:07 | XMS_ITS | Patient Health Record ---
Author Organization [facility] Address [address] [place] [address] Care Team Providers Care Roving Sizer Name Role Phone Taras VAUGHN, Eric Primary Care Provider Mynor Martines Jr Unavailable [phone] ALLERGIES No Known Allergies RESULTS Component Value Reference Range Notes Pathology Reviewed date:06/22/2024 08:08:54 AM Interpretation: Performing Lab:[facility], [address] [place] [phone] Notes/Report: REASON FOR REFERRAL No Information MEDICATIONS Medication SIG (Take, Route, Frequency, Duration) [...] Gabapentin 300 MG Oral for 90 Active IMMUNIZATIONS Vaccine Route Administration Date Status Comme nts Influenza Unknown 09/17/2023 Administered SOCIAL HISTORY Tobacco Use: Social History Observation [...] point) Points 3 Interpretation Positive VITAL SIGNS Temperature 97.7 degrees Fahrenheit 05/14/2024 Blood pressure diastolic 00 mm Hg 05/14/2024 Height 5 ft 5 in in 05/14/2024 Blood pressure systolic 000 mm Hg 05/14/2024 Weight 161 lb 4 oz lbs 05/14/2024 BMI 26.83 kg/m2 05/14/2024 Encounters Encounter Location Date Provider Diagnosis [facility] [place] [address] [place], [place] [phone] 06/16/2024 Mynor Rocha Jr Colon cancer screening Z12.11 and Colon polyps K63.5 [facility] [address] [place] [address] 05/14/2024 Mynor Rocha Jr Colon cancer screening Z12.11 [facility] [address] [place] [address] 06/22/2024 Mynor Rocha Jr ASSESSMENTS Encounter Date Diagnosis Assessment Notes Treatment Notes Treatment Clinical Notes 06/16/2024 Colon cancer screening (ICD-10 - Z12.11) 06/16/2024 Colon polyps (ICD-10 - K63.5) 05/14/2024 Colon cancer screening (ICD-10 - Z12.11) Colonoscopy material was printed PLAN OF TREATMENT Future Test Test Name Order Date COLONOSCOPY 05/14/2024 Insurance Providers Payer Name Payer Address Payer Phone Subscriber Number Group Number Insured Name Patient Relationship to Insured Coverage Start Date Coverage End Date MEDICARE OF [place] [address] [place] [address] [id number] ZHANG SHAY Self - patient is the insured MED[employer] ATTN CLAIMS [address] [place] [address] [id number] ZHANG SHAY Self - patient is the insured MEDICAL (GENERAL) HISTORY Medical History History ICD Code Hypothyroidism Hyperlipidemia Tachycardia Depression Disc disease with neuropathy Surgical History Surgery Date(Month/Year) deviated septum 1984 breast biopsy 1996 Tubal ligation 1976 Repair of Dupuytren's contracture, right hand
== END 2024-11-03 12:20 | disposition home or self-care (01) ==
LOC: HO.HMGCLDS 12:19
PROVIDERS: PCP Family Medicine; Visit Provider Family Medicine
DX: E03.9 Hypothyroidism, unspecified (principal)
CPT/HCPCS: 36415; 84439; 84443

== ENCOUNTER 2025-01-06 09:47 | Outpatient (REF) | payer MEDICARE, SELFPAY ==
--- OUTSIDE RECORDS SUMMARY | 2025-01-06 11:23 | XMS_ITS | Patient Health Record ---
Author Organization [facility] Address [address] [place] [address] Care Team Providers Care Marketing Effectiveness Manager Name Role Phone Taras VAUGHN, Eric Primary Care Provider Mynor Martines Jr Unavailable [phone] ALLERGIES No Known Allergies RESULTS Component Value Reference Range Notes Pathology Reviewed date:06/22/2024 08:08:54 AM Interpretation: Performing Lab:[facility], [address] [place] [phone] Notes/Report: REASON FOR REFERRAL No Information MEDICATIONS [...] 05/14/2024 Encounters Encounter Location Date Provider Diagnosis [facility] Outpatient [address] [place], [place] [phone] 06/16/2024 Mynor Rocha Jr Colon cancer screening Z12.11 and Colon polyps K63.5 [facility] [address] [place] [address] 05/14/2024 Mynor Rocha Jr Colon cancer screening Z12.11 [facility] [address] [place] [phone] 06/22/2024 Mynor Rocha Jr ASSESSMENTS Encounter Date [...] [place] [address] [place] [id number] ZHANG SHAY Self - patient is the insured MED[employer] ATTN CLAIMS [address] [place] [address] [id number] ZHANG SHAY Self - patient is the insured MEDICAL (GENERAL) HISTORY Medical History History ICD Code Hypothyroidism Hyperlipidemia Tachycardia Depression Disc disease with neuropathy Surgical History Surgery Date(Month/Year) deviated septum 1984 breast biopsy 1996 Tubal ligation 1976 Repair of Dupuytren's contracture, right hand
--- OUTSIDE RECORDS SUMMARY | 2025-01-06 11:23 | XMS_ITS ---
Author Organization [facility] Address [address] [place] [address] Care Team Providers Care Classifier Name Role Phone Eric Grajeda MD Primary Care Provider Unavailab Mynor Stewart Jr Unavailable REASON FOR VISIT screening Encounters Encounter Location Date Provider Diagnosis [facility] [place] [address] [place], [place] [phone] 06/16/2024 Mynor Rocha Jr Colon cancer screening Z12.11 and Colon polyps K63.5 ASSESSMENTS Encounter Date Diagnosis Assessment Notes Treatment Notes Treatment Clinical Notes 06/16/2024 Colon cancer screening (ICD-10 - Z12.11) 06/16/2024 Colon polyps (ICD-10 - K63.5) PLAN OF TREATMENT No Information
--- OUTSIDE RECORDS SUMMARY | 2025-01-06 11:23 | XMS_ITS ---
Author Organization [facility] Address [address] [place] [address] Care Team Providers Care Tree Marker Name Role Phone Eric Grajeda MD Primary Care Provider Unavailab Mynor Stewart Jr Unavailable [phone] REASON FOR VISIT pathology Encounters Encounter Location Date Provider Diagnosis [facility] [address] [place] [address] 06/22/2024 Mynor Rocha Jr PLAN OF TREATMENT No Information
--- OUTSIDE RECORDS SUMMARY | 2025-01-06 11:23 | XMS_ITS | Patient Health Record ---
Author Organization [facility] Address [address] [place] [address] Care Team Providers Care Mine Engineering Supervisor Name Role Phone Eric Grajeda MD Primary Care Provider UnavailSha Menezes Unavailable [phone] Allergies Allergen (clinical drug ingredient) Drug/Non Drug [...] Status Risk Notes Problem Acquired hallux valgus (50903591) Hallux valgus (acquired), right foot (M20.11) Active confirmed Plan Of Treatment Pending Test Test Name Order Date X ray : Foot, right 2V 09/12/2016 X ray : Foot, right 2V 12/03/2016 X ray : Foot, right 2V 12/17/2016 X ray : Foot, right 2V 01/07/2017 X ray : Foot, left 3V 04/14/2012 27950-Rjhf Destruction, 12-0805/12/2012 32476-Tlor Destruction, 12-0812/29/2012 82407-Ofse Destruction, 12-0803/30/2013 00673-Maxx Destruction, 12-0803/05/2014 30622-Kfta Destruction, 12-0804/22/2014 Insurance Providers Payer Name Payer Address Payer Phone Subscriber Number Group Number Insured Name Patient Relationship to Insured Coverage Start Date Coverage End Date Medicare National Govt Svcs Inc [address] [place] [address] [id number] Rosa Wakefield Self - patient is the insured 7 [employer] Blue Shield [address] [place] [address] [phone] [id number] Rosa Wakefield Self - patient is the [...]
--- OUTSIDE RECORDS SUMMARY | 2025-01-06 11:23 | XMS_ITS ---
Author Organization [facility] Address [address] [place] [address] Care Team Providers Care Manager Integrity Name Role Phone Taras VAUGHN, Eric Primary Care Provider Unavailab Mynor Stewart Jr Unavailable [phone] ALLERGIES No Known Allergies REASON FOR [...] 05/14/2024 Encounters Encounter Location Date Provider Diagnosis [facility] [address] [place] [address] 05/14/2024 Mynor Rocha Jr Colon cancer screening [...] General Examination GENERAL APPEARANCE: in no ac [place] distress HEAD: normocephalic EYES: sclera non-icteric NECK/THYROID: no lymphadenopathy HEART: S1, S2 normal, no mu rmurs CHEST: normal shape and exp ansion LUNGS: clear to auscultatio n bilaterally ABDOMEN: soft, nontender, non distended, bowel sounds present, no organomegaly SKIN: anicteric EXTREMITIES: no clubbing, cyanosi s, or edema PSYCH: cognitive function i ntact ORAL CAVITY: mucosa moist
== END 2025-01-06 09:48 | disposition home or self-care (01) ==
LOC: HO.MAMMO 09:47
PROVIDERS: Absent Provider Obstetrics & Gynecology; PCP Family Medicine; Visit Provider Family Medicine
DX: Z12.31 Encounter for screening mammogram for malignant neoplasm of breast (principal)
CPT/HCPCS: 77063; 77067

== ENCOUNTER → 2025-01-06 10:00 | Outpatient (BNV) | payer MEDICARE, SELFPAY | PROVIDERS: Absent Provider Obstetrics & Gynecology; PCP Family Medicine; Visit Provider Internal Medicine | DX: Z12.31 Encounter for screening mammogram for malignant neoplasm of breast (principal) | CPT/HCPCS: 77063; 77067 ==

== ENCOUNTER 2025-04-22 08:39 | Outpatient (REF) | payer MEDICARE, SELFPAY ==
--- OUTSIDE RECORDS SUMMARY | 2025-04-22 08:55 | XMS_ITS ---
Author Organization [facility] Address [address] [place] [address] Care Team Providers Care Truck Engine Technician Name Role Phone Taras VAUGHN, Eric Primary Care Provider Unavailab Mynor Stewart Jr Unavailable REASON FOR VISIT screening Encounters Encounter Location Date Provider Diagnosis [facility] Out[place] [address] [place] [phone] 06/16/2024 Mynor Rocha Jr Colon cancer screening Z12.11 and Colon polyps K63.5 Assessments Encounter Date Diagnosis (ICD Code) Assessment Notes Treatment Notes Treatment Clinical Notes Section Notes 06/16/2024 Colon cancer screening (ICD-10 - Z12.11) 06/16/2024 Colon polyps (ICD-10 - K63.5) Plan Of Treatment No Information Progress Notes * ZHANG SHAY RDOB: [birth year] (74 yo F)Acc No.[id number]:06/16/2024 COLON WITH MAC Patient:?ZHANG SHAY Provider:?Mynor Rocha MD :1950???Age:73 Y???Sex:Female D ate:06/16/2024 Address:[address] [place] [address] , [id number] Pcp:Eric Grajeda MD Subjective: * Chief Complaints: * ???1. Screening. * Medical History:? Objective: * Vitals:? Assessment: * Assessment: 1.?Colon cancer screening - Z12.11 (Primary)???2.?Colon polyps - K63.5??? Plan: * Treatment: * Procedure Codes:?69292 LESIO N REMOVAL COLONOSCOPY, 05206 COLONOSCOPY AND BIOPSY, Modifiers: 60 , 0529F INTRVL 3+YRS PTS CLNSCP DOCD * * The named appointment provid er may or may not be the originator of this progress note, and it is not deemed complete until electronically signed by the appointment provider. Sign off status: Pending * Provider:?Mynor Rocha MD Date:?0 06/16/2024 Generated for Toribio tolliver/Junior/Darlinitting on:?04/22/2025 08:55 AM EDT
[2025-04-22 11:06] LABS: Alanine Aminotransferase 16 U/L (0-31); Aspartate Amino Transferase 28 U/L (5-31); Cholesterol 199 mg/dL (<200); Estimated Glomerular Filt Rate 54; HDL Cholesterol 76 mg/dL (>40); LDL Cholesterol Calculated 106 mg/dL (<100); Triglycerides 86 mg/dL (<150)
[2025-04-22 11:27] LABS: Free T4 (Free Thyroxine) 1.24 ng/dL (0.71-1.85); Thyroid Stimulating Hormone 1.42 uIU/mL (0.32-4.0)
== END 2025-04-22 08:40 | disposition home or self-care (01) ==
LOC: HO.HMGCLDS 08:39
PROVIDERS: PCP Family Medicine; Visit Provider Family Medicine
DX: E03.9 Hypothyroidism, unspecified (principal); E78.00 Pure hypercholesterolemia, unspecified; Z79.899 Other long term (current) drug therapy
CPT/HCPCS: 36415; 80061; 82550; 82565; 84439; 84443; 84450; 84460

== ENCOUNTER 2025-08-23 08:57 | Outpatient (REF) | payer MEDICARE, SELFPAY ==
[2025-08-23 11:02] LABS: Anion Gap 10 (12-20); Blood Urea Nitrogen 13 mg/dL (9-16); Calcium 8.8 mg/dL (8.4-10.2); Carbon Dioxide 28 mmol/L (22-29); Chloride 102 mmol/L (96-108); Estimated Glomerular Filt Rate > 60; Potassium 4.0 mmol/L (3.3-5.1); Sodium 136 mmol/L (135-145)
== END 2025-08-23 08:58 | disposition home or self-care (01) ==
LOC: HO.LAB 08:57
PROVIDERS: PCP Family Medicine; Visit Provider Physician Assistant
DX: N32.81 Overactive bladder (principal); G47.00 Insomnia, unspecified; I49.9 Cardiac arrhythmia, unspecified; F32.A Depression, unspecified; E03.9 Hypothyroidism, unspecified; E78.00 Pure hypercholesterolemia, unspecified
CPT/HCPCS: 36415; 80048; 96127; 99202

== ENCOUNTER 2025-08-23 08:57 | Outpatient (AMB) | payer MEDICARE, SELFPAY ==
--- OUTSIDE RECORDS SUMMARY | 2024-06-16 03:30 | XMS_ITS ---
Author Organization [facility] Address [address] [place] [id number] Care Team Providers Care Tag Marker Name Role Phone Taras (RETIRED) , Eric Primary Care Provider Unavailable Mynor Rocha Jr Unavailable REASON FOR VISIT screening Encounters Encounter Location Date Provider Diagnosis [facility] [place] Outpatient [address] [place] [phone] 06/16/2024 Mynor Rocha Jr Colon cancer screening Z12.11 and Colon polyps K63.5 Assessments Encounter Date Diagnosis (ICD Code) Assessment Notes Treatment Notes Treatment Clinical Notes Section Notes 06/16/2024 Colon cancer screening (ICD-10 - Z12.11) 06/16/2024 Colon polyps (ICD-10 - K63.5) Plan Of Treatment No Information Progress Notes * ZHANG SHAY RDOB: 2 (74 yo F)Acc No.[id number]:06/16/2024 COLON WITH MAC Patient: ANA MERCERANN Francisco Provider: Darius Rocha MD :1950 A ge:73 Y S ex:Female Date:06/16/2024 Address:[address] [place] [address] [id number] Pcp:Eric Grajeda (RETIRED) MD Subjective: * Chief Complaints: * 1 . Screening. * Medical History: Objective: * Vitals: Assessment: * Assessment: 1. C olon cancer screening - Z12.11 (Primary) 2 . C olon polyps - K63.5? Plan: * Treatment: * Procedure Codes: 4 5385 LESION REMOVAL COLONOSCOPY, 43029 COLONOSCOPY AND BIOPSY, Modifiers: 59 0529F INTRVL 3+YRS PTS CLNSCP DOCD * * The named appointment provid er may or may not be the originator of this progress note, and it is not deemed complete until electronically signed by the appointment provider. Sign off status: Pending * Provider: Darius Rocha MD Date: 0 06/16/2024 Generated for Toribio tolliver/Junior/Darlinitting on: 0 08/23/2025 09:29 AM EDT
--- NOTE | 2025-08-23 09:00 | A.OFFPC_ITS ---
Vital Signs 08/23/25 09:03 Height 5 ft 5 in Weight 72.575 kg BMI 26.6 BP 128/70 Respiration 14 Pulse 65 Pulse Source Pulse Oximeter Temp 98.5 F Temp Source Temporal Artery Scan Pulse Oximetry (%) 97 Oxygen Delivery Method Room Air Intake Visit Reasons: 4 MO F/UP - PEPE PT Train Control Technician Required: No Accompanied by: Self / Same As Patient Allergies Yeast (YEAST) Allergy (Intermediate, Verified 08/23/25 09:00) THRUSH Tobacco use date assessed: 08/23/25 Fall risk assessment: No Falls in past year Last assessed Fall Risk: 08/23/25 Dental Screening Dental Screen Date: 08/23/25 Did you have a dental visit in the last 12 months?: Yes Did you have a dental problem in the last 6 months where you did not have access to dental care?: No Was dental information given to patient?: No HPI HPI Comments History of Present Illness Details 74-year-old female with history of 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 GERD- no issues in many years. Avoids triggers and sleeps on side LLE radiculopathy- occ low back pain limiting ROM, very intermittent. Gabapenting helpful for the neuropathy/radiculopathy Hypothyroidism- on levothyroxine 88mcg HLD- atorvastatin 10mg nightly MDD- overall stable of citalopram. Affected by weather, but able to use coping skills. Some issues with insomnia with falling asleep and then wakes around 3am. Can fall back asleep. Was using diphenhydromine Palpitations- metoprolol 25 mg b.i.d. Concerns: None Health maintenance: Last screening mammogram 12/2024 with 1 year follow-up advised DEXA scan 2023, normal Last colonoscopy 2023, PRN follow-up ROS: General: No fevers, malaise, unintentional weight loss HEENT: No blurred vision, diplopia. No sore throat, nasal congestion, rhinorrhe a, sinus pain, ear pain Cardiovascular: No chest pain, palpitations, or leg edema Respiratory: No shortness of breath, wheezing, cough GI: No abdominal pain, nausea, vomiting, diarrhea, constipation, melena, hematochezia : No dysuria, hematuria, increased urinary frequency, decreased urinary output MSK: No myalgia, back pain Neuro: No headaches, weakness, paresthesias Skin: No rashes or lesions EXAM: Constitutional - Awake and Alert, No apparent distress Eyes - PERRL Cardiovascular - S1S2, RRR, No edema Respiratory - Normal lung expansion, Normal respiratory effort, No respiratory distress, CTA bilaterally Extremities - no calf tenderness bilaterally, no swelling Skin - Warm/Dry Neurological - Alert & oriented x3 Psychological - Appropriate affect Concerns: None PFSH Medical History (Updated 08/23/25 @ 09:30 by LIZ Colin) Cardiac dysrhythmia, unspecified GERD (gastroesophageal reflux disease) Insomnia Colon polyp Overactive bladder Hypothyroidism Bulging lumbar disc Rotator cuff arthropathy Depression Nerve pain High cholesterol Surgical History H/O hand surgery History of bunionectomy Hx of repair of right rotator cuff Hx of colonoscopy (~06/16/24) Social History [facility] Are you a primary health care law specialist to a significant other at home: No Do you presently have visiting nurse or other home services: No Patient Tobacco Use Status: Never used Tobacco e-Cigarette/Vaping Use: Never Used service: No Current occupational status: retired Current occupation: right hand Cognitive needs: No Hearing needs: No Vision needs: Yes (Rx glasses) Questionnaire PHQ-9 Over the last 2 weeks, how often have you been bothered by any of the following problems? 1. Little interest or pleasure in doing things: not at all 2. Feeling down, depressed, or hopeless: not at all 3. Trouble falling or staying asleep, or sleeping too much: nearly every day 4. Feeling tired or having little energy: not at all 5. Poor appetite or overeating: not at all 6. Feeling bad about yourself - or that you are a failure or have let yourself or your family down: not at all 7. Trouble concentrating on things, such as reading the newspaper or watching television: not at all 8. Moving or speaking so slowly that other people could have noticed. Or the opposite - being so fidgety or restless that you have been moving around a lot more than usual: not at all 9. Thoughts that you would be better off or of hurting yourself in some way: not at all Total score: 3 Depression Screening Interpretation: Negative Depression Screening Done: Yes 64256 - PHQ-9 Billing: Yes Source: Developed by Drs. Alberto Helelr, Brooklyn Pete, Oziel Naylor and colleagues, with an educational moncho from [employer]. Thrive Questionnaire I am a: Patient What is your living situation today?: I have a steady place to live Within the past 12 months, did the food you bought not last and you didn't have the money to get more?: Never true Within the past 12 months, did you worry whether your food would run out before you got money to buy more?: Never true Do you have trouble paying for medicines?: No Do you have trouble getting transportation to medical appointments?: No Do you have trouble paying your heating and electricity bill?: No Do you have trouble taking care of your child, family member or friend?: No Do you have trouble with day-to-day activities such as bathing, preparing meals, shopping, managing finances, etc.?: No Are you currently unemployed and looking for a job?: No Are you interested in more education?: No Please select the resources that you would like help with: None Currently or been in a relationship where the following occur: No concerns reported THRIVE Score: 0 AUDIT C Alcohol Use Questionnaire (AUDIT-C) 1. How often do you have a drink containing alcohol?: 2-3 times a week 2. How many drinks containing alcohol do you have on a typical day when you are drinking?: 1 or 2 Total Score: 3 PATRICIA-7 AMB Questionnaire PATRICIA-7 Feeling nervous, anxious, or on edge: 0 = Not at all Not being able to stop or control worryin = Not at all Worrying too much about different things: 0 = Not at all Trouble relaxin = Not at all Being so restless that it is hard to sit still: 0 = Not at all Becoming easily annoyed or irritable: 0 = Not at all Feeling afraid as if something awful might happen: 0 = Not at all Total PATRICIA-7 score (0-4 normal; 5-9 mild; 10-14 moderate; 15-21 severe): 0 Source: Developed by Drs. Alberto Heller, Brooklyn Pete, Oziel Naylor and colleagues, with an educational moncho from [employer]. PATRICIA-7 Assessment Billing PATRICIA-7 Assessment Tool: PATRICIA-7 Assessment 63941 Physical exam (Primary Care) Vital Signs: Last Vital Signs Temp 98.5 F 08/23/25 09:03 Pulse 65 08/23/25 09:03 Resp 14 08/23/25 09:03 BP 128/70 08/23/25 09:03 Pulse Ox 97 08/23/25 09:03 Oxygen Delivery Method Room Air 08/23/25 09:03 BMI result Body Mass Index 26.6 Tobacco/Smoking Status: Tobacco use Status Tobacco use date assessed 08/23/25 08/23/25 09:05 Patient Tobacco Use Status Never used Tobacco 08/23/25 09:05 e-Cigarette/Vaping Use Never Used 08/23/25 09:05 Depression Screening Interpretation: Negative Currently or been in a relationship where the following occur: No concerns reported Coding Level of Care Code New Pt Level 4 (53302) Complex EM visit Add On G2211 Diagnoses Overactive bladder N32.81 Insomnia G47.00 Cardiac dysrhythmia, unspecified I49.9 Depression F32.A Hypothyroidism E03.9 High cholesterol E78.00 Additional Codes PHQ-9 - 70668 - PHQ-9 Billing: Yes ([id number]) PATRICIA-7 Assessment Billing - PATRICIA-7 Assessment Tool: PATRICIA-7 Assessment 94183 ([id number]) Assessment & Plan Assessment & Plan (1) Overactive bladder: Code(s): N32.81 - Overactive bladder Category: Medical Plan: Stable (2) Insomnia: Code(s): G47.00 - Insomnia, unspecified Category: Medical Plan: Recommend valerian root melatonin up to 5-6 mg nightly. Avoid diphenhydramine (3) Cardiac dysrhythmia, unspecified: Code(s): I49.9 - Cardiac arrhythmia, unspecified Category: Medical Plan: Will obtain records. Continue metoprolol 25 mg twice daily (4) Depression: Code(s): F32.A - Depression, unspecified Category: Medical Plan: Stable. Continue citalopram (5) Hypothyroidism: Code(s): E03.9 - Hypothyroidism, unspecified Category: Medical Plan: Reviewed last labs, euthyroid (6) High cholesterol: Code(s): E78.00 - Pure hypercholesterolemia, unspecified Category: Medical Plan: Reviewed last lipid panel, reasonably controlled. Continue atorvastatin Plan Follow-up in the office in 6 months. Basic metabolic profile to be completed today. Remainder of labs to be completed 6 days prior to next visit Orders: Orders Basic Metabolic Panel Today E03.9 - Hypothyroidism, unspecified, E78.00 - Pure hypercholesterolemia, unspecified Complete Blood Count Auto Diff 6 Months E03.9 - Hypothyroidism, unspecified, E78.00 - Pure hypercholesterolemia, unspecified, F32.A - Depression, unspecified, I49.9 - Cardiac arrhythmia, unspecified Lipid Panel 6 Months E03.9 - Hypothyroidism, unspecified, E78.00 - Pure hypercholesterolemia, unspecified, F32.A - Depression, unspecified, I49.9 - Cardiac arrhythmia, unspecified TSH reflex Free T4 6 Months E03.9 - Hypothyroidism, unspecified, E78.00 - Pure hypercholesterolemia, unspecified, F32.A - Depression, unspecified, I49.9 - Cardiac arrhythmia, unspecified Basic Metabolic Panel 6 Months E03.9 - Hypothyroidism, unspecified, E78.00 - Pure hypercholesterolemia, unspecified, F32.A - Depression, unspecified, I49.9 - Cardiac arrhythmia, unspecified Liver Panel 6 Months E03.9 - Hypothyroidism, unspecified, E78.00 - Pure hype rcholesterolemia, unspecified, F32.A - Depression, unspecified, I49.9 - Cardiac arrhythmia, unspecified Vitamin D 25-OH Total 6 Months E03.9 - Hypothyroidism, unspecified, E78.00 - Pure hypercholesterolemia, unspecified, F32.A - Depression, unspecified, I49.9 - Cardiac arrhythmia, unspecified Patient Instructions: Insomnia: Try melatonin 5-6 mg nightly Try valerian root
[2025-08-23 09:03] VITALS: BP 128/70; PULSE 65; RESP 14; TEMP 36.9; O2SAT 97; BMI 26.6
--- OUTSIDE RECORDS SUMMARY | 2025-08-23 09:29 | XMS_ITS | Patient Health Record ---
Author Organization [facility] Address [address] [place] [address] Care Team Providers Care Business Associate Name Role Phone Taras (RETIRED) Eric VAUGHN Primary Care Provider Unavailable Mynor Rocha Jr Unavailable [phone] Allergies No Known Allergies Reason For Referral No Information Medications Medication [...] Gabapentin 300 MG Oral for 90 Active Immunizations Vaccine Route Administration Date Status Comme nts Influenza Unknown 09/17/2023 Administered Social History Tobacco Use: Social History Observation Description Date Details (start date - stop date) Never Smoker NA - NA Tobacco Use/Smoking Question Answer Notes Patient is [...] Never (0 point) Points 3 Interpretation Positive Plan Of Treatment Future Test Test Name Order Date COLONOSCOPY 05/14/2024 Insurance Providers Payer Name Payer Address Payer Phone Subscriber Number Group Number Insured Name Patient Relationship to Insured Coverage Start Date Coverage End Date MEDICARE OF [place] [address] [place] [id number] ZHANG SHAY Self - patient is the insured [employer] ATT[employer] CLAIMS [address] [place] [address] [id number] ZHANG SHAY Self - patient is the insured Medical (General) History Medical History History ICD Code Hypothyroidism Hyperlipidemia Tachycardia Depression Disc disease with neuropathy Surgical History Surgery Date(Month/Year) deviated septum 1984 breast biopsy 1996 Tubal ligation 1976 Repair of Dupuytren's contracture, right hand
--- OUTSIDE RECORDS SUMMARY | 2025-08-23 09:29 | XMS_ITS | Patient Health Record ---
Author Organization [facility] [place] Address [address] [place] [address] Care Team Providers Care Shopper'S Aide Name Role Phone Eric Grajeda MD Primary Care Provider UnavailSha Menezes Unavailable [phone] Allergies Allergen (clinical drug ingredient) Drug/Non Drug Allergy documented on EMR Reaction Allergy Type Onset Date Status Yeast Formula Unknown Drug Allergy Act sabine Reason For Referral No Information Medications Medication SIG (Take, Route, Frequency, Duration) Notes Start Date End Date Status Hyoscyamine Not-Taki ng Lipitor 10 MG 1 tablet Orally Once a day; Duration: 30 day(s) Not-Taking Levoxyl Not-Taking Multivitamins Not-Ta steve Metoprolol & Diet Manage Prod Not-Taking Atorvastatin Calcium 10 MG 1 tablet Oral ly Once a day; Duration: 30 day(s) Active oxyBUTYnin 10mg Once a day Not -Taking Omeprazole Not-Takin g Levothyroxine Sodium 88 MCG 1 tablet in the morning on an empty stomach Orally Once a day; Duration: 30 day(s) Active ZyrTEC Allergy Not-T aking Gabapentin 300 MG 1 tablet Orally QD Active Vitamin C Not-Taking Ambien Not-Taking Metoprolol Tartrate 25 MG 1 tablet with food Orally Twice a day; Duration: 30 day(s) Active Ibuprofen 600 MG 1 tablet Orally Thre e times a day; Duration: 30 day(s) 11/12/2016 Not-Taking Immunizations Vaccine Route Administration Date Status Comme nts Influenza Unknown 07/26/2021 Administered COVID-19 Moderna Vaccine Unknown 08/29/2021 Administered 1st 01/09/2021 2nd 02/06/2021 Social History Tobacco Use: Social History Observation [...] Status Risk Notes Problem Acquired hallux valgus ([id number]) Hallux valgus (acquired), right foot (M20.11) Active confirmed Plan Of Treatment Pending Test Test Name Order Date X ray : Foot, right 2V 09/12/2016 X ray : Foot, right 2V 12/03/2016 X ray : Foot, right 2V 12/17/2016 X ray : Foot, right 2V 01/07/2017 X ray : Foot, left 3V 04/14/2012 [id number] Destruction, -14 05/12/2012 [id number] Destruction, -14 12/29/2012 [id number] Destruction, -14 03/30/2013 [id number] Destruction, -14 03/05/2014 [id number] Destruction, -14 04/22/2014 Insurance Providers Payer Name Payer Address Payer Phone Subscriber Number Group Number Insured Name Patient Relationship to Insured Coverage Start Date Coverage End Date Medicare National [employer] [address] [place] [address] [id number] Rosa Wakefield Self - patient is the insured 7 [employer] [address] [place] [address] [id number] Rosa Wakefield Self - patient is the [...]
== END 2025-08-23 09:27 | disposition home or self-care (01) ==
LOC: HO.HMCHD 08:57
PROVIDERS: PCP Family Medicine; Visit Provider Physician Assistant
DX: N32.81 Overactive bladder (principal); G47.00 Insomnia, unspecified; I49.9 Cardiac arrhythmia, unspecified; F32.A Depression, unspecified; E03.9 Hypothyroidism, unspecified; E78.00 Pure hypercholesterolemia, unspecified